=== PATIENT | female | born 1960 | race Caucasian/White ===

== ENCOUNTER 2018-02-23 12:43 | Emergency (ER) | payer OTHER ==
--- OUTSIDE RECORDS SUMMARY | 2018-02-23 12:54 | XMS REPORT ---
:1960 External Reference #:[id number] Author Organization [facility] Address [address] [address] Phone [phone] Care Team Providers Name Role Phone Briseida Mcknight MD Care Team Information Pulp Drier Unavailable Payers Type Date Identification Numbers Payment Provider Subscriber Commercial Effective: Policy Number: [id number] Aepiercemary jo Corley 2016 PayID: [id number] [address] [place] [address] Medigap Part B Effective: Policy Number: FREDI Commercial Bernardo Corley 2010 [id number] Expires: 2014 PayID: [id number] [address] [address] [place] [address] Medigap Part B Expires: 2016 Policy Number: BCEUGENIE o Rosalie Corley [id number] Group Number: [id number] [address] [address] PayID: [id number] [place] [id number] Problems Date Description Provider Status Onset: 12/09/2012 Post-surgical malabsorption Briseida Mcknight MD Active Onset: 04/14/2011 Vitamin D deficiency Briseida Mcknight MD Active Onset: 03/03/2007 Hypothyroidism Briseida Mcknight MD Active Onset: 10/09/2014 Impaired fasting glycaemia Briseida Mcknight MD Active Onset: 02/18/2016 Tobacco user Briseida Mcknight MD Active Onset: 02/19/2017 Cobalamin deficiency Briseida Mcknight MD Active Onset: 08/19/2017 History of polyp of colon Briseida Mcknight MD Active Family History Date Family Member(s) Problem(s) Comments : (age 65 Years) Father due to Cancer, Colon Mother None Social History Type Date Description Comments Marital Status Lives With Spouse Pets several cats Occupation Insurance now works in [employer] Cigarette Use current cigarette smoker 4-5 daily ETOH Use Rarely consumes alcohol Smoking Patient is a current smoker, smokes every day Exercise Type/Frequency Walks 5 times a week Allergies, Adverse Reactions, Alerts Date Description Reaction Status Severity Comments 10/01/2014 NKDA active Medications Medication Date Status Form Strength Qnty SIG Indications Ordering Provider Levothyroxine Active Tablets 112mcg 90tabs take one E03.9 Jim Mcknight 016 tablet MD Briseida by mouth every day Vitamin B-12 ER Active Tablets ER 1000mcg 1 po qd Jana Mcknight MD Vitamin D Active Tablets 2000Unit 1 by Unknown 000 mouth every day Levothyroxine Hx Tablets 100mcg 90tabs 1 by E03.9 Jim Mcknight 013 - mouth MD Briseida every 016 day Immunizations CPT Code Status Date Vaccine Lot # [id number] Given 07/01/2012 Zoster (Zostavax) 30119 Given 01/06/2011 Tdap (Adacel) Ages 7 And Above Only [id number] Refused 02/21/2018 Influenza Vac, 3 Yrs & Older, Quadrivalent, [place], [place] Use [id number] Refused 08/19/2017 Afluria Or Fluvirin Flu Vac Intramuscular Vital Signs Date Vital Result Comment 02/21/2018 Weight 169.00 lb Heart Rate 70 /min BP Systolic 130 mmHg BP Diastolic 80 mmHg Respiratory Rate 18 /min Height 61.75 inches 5'1.75" 08/19/17 BMI (Body Mass Index) 31.2 kg/m2 08/19/2017 Weight 167.00 lb Heart Rate 76 /min BP Systolic 122 mmHg BP Diastolic 70 mmHg Respiratory Rate 18 /min Height 61.75 inches 5'1.75" 08/19/17 BMI (Body Mass Index) 30.8 kg/m2 02/19/2017 Body Temperature 98.3 F Weight 161.00 lb Heart Rate 68 /min BP Systolic 130 mmHg BP Diastolic 80 mmHg Respiratory Rate 18 /min Height 61.75 inches 5'1.75" BMI (Body Mass Index) 29.7 kg/m2 08/18/2016 Weight 161.00 lb Heart Rate 70 /min BP Systolic 120 mmHg BP Diastolic 70 mmHg Respiratory Rate 18 /min Height 61.75 inches 5'1.75" BMI (Body Mass Index) 29.7 kg/m2 02/18/2016 Weight 152.00 lb Heart Rate 70 /min BP Systolic 126 mmHg BP Diastolic 76 mmHg Respiratory Rate 18 /min Height 61.75 inches 5'1.75" BMI (Body Mass Index) 28.0 kg/m2 12/17/2015 Weight 149.00 lb Heart Rate 72 /min BP Systolic 114 mmHg BP Diastolic 70 mmHg Respiratory Rate 18 /min Height 61.75 inches 5'1.75" BMI (Body Mass Index) 27.5 kg/m2 09/03/2015 Weight 146.00 lb Heart Rate 70 /min BP Systolic 118 mmHg BP Diastolic 74 mmHg Respiratory Rate 18 /min Height 61.75 inches 5'1.75" BMI (Body Mass Index) 26.9 kg/m2 03/19/2015 Weight 150.00 lb Heart Rate 68 /min BP Systolic 124 mmHg BP Diastolic 76 mmHg Respiratory Rate 17 /min Height 61.75 inches 5'1.75" BMI (Body Mass Index) 27.7 kg/m2 10/09/2014 Weight 155.00 lb Heart Rate 72 /min BP Systolic 114 mmHg BP Diastolic 70 mmHg Respiratory Rate 18 /min Height 61.75 inches 5'1.75" BMI (Body Mass Index) 28.6 kg/m2 04/20/2014 Weight 147.00 lb Heart Rate 66 /min BP Systolic 120 mmHg BP Diastolic 80 mmHg Respiratory Rate 18 /min 11/03/2013 Weight 148.00 lb Heart Rate 72 /min BP Systolic 120 mmHg BP Diastolic 80 mmHg Respiratory Rate 18 /min Height 61.75 inches 5'1.75" 05/19/2013 Weight 146.00 lb Heart Rate 72 /min BP Systolic 122 mmHg BP Diastolic 76 mmHg Respiratory Rate 16 /min Height 61.75 inches 5'1.75" (Done On 06/30/12) 12/09/2012 Weight 139.00 lb Heart Rate 60 /min BP Systolic 100 mmHg BP Diastolic 70 mmHg Respiratory Rate 16 /min Height 61.75 inches 5'1.75" (Done On 06/30/12) 06/30/2012 Weight 137.00 lb Heart Rate 64 /min BP Systolic 110 mmHg BP Diastolic 70 mmHg Respiratory Rate 16 /min Height 61.75 inches 5'1.75" 04/14/2012 Body Temperature 97.5 F Weight 146.00 lb Heart Rate 72 /min BP Systolic 112 mmHg BP Diastolic 64 mmHg Respiratory Rate 16 /min Height 61.5 inches 5'1.50" (Done On 07/16/11) O2 % BldC Oximetry 98 % 01/21/2012 Weight 142.00 lb Heart Rate 76 /min BP Systolic 118 mmHg BP Diastolic 74 mmHg Respiratory Rate 16 /min Height 61.5 inches 5'1.50" (Done On 07/16/11) 07/16/2011 Weight 178.00 lb Heart Rate 84 /min BP Systolic 116 mmHg BP Diastolic 76 mmHg Respiratory Rate 18 /min Height 61.5 inches 5'1.50" 04/14/2011 Weight 210.00 lb Heart Rate 80 /min BP Systolic 120 mmHg BP Diastolic 70 mmHg Respiratory Rate 18 /min Height 61.5 inches 5'1.50" (Done On 09/30/10) 01/27/2011 Weight 218.00 lb Heart Rate 76 /min BP Systolic 126 mmHg BP Diastolic 80 mmHg Respiratory Rate 18 /min Height 61.5 inches 5'1.50" (Done On 09/30/10) 01/06/2011 Weight 219.00 lb Heart Rate 84 /min BP Systolic 122 mmHg BP Diastolic 80 mmHg Respiratory Rate 20 /min Height 61.5 inches 5'1.50" (Done On 09/30/10) 09/30/2010 BP Systolic 130 mmHg BP Diastolic 80 mmHg 09/30/2010 Weight 220.00 lb Heart Rate 68 /min BP Systolic 136 mmHg BP Diastolic 84 mmHg Respiratory Rate 20 /min Height 61.5 inches 5'1.50" 03/28/2010 Weight 218.00 lb Heart Rate 66 /min BP Systolic 118 mmHg BP Diastolic 72 mmHg Respiratory Rate 18 /min 01/22/2010 Body Temperature 98.3 F Weight 218.00 lb Heart Rate 76 /min BP Systolic 112 mmHg l arm BP Diastolic 84 mmHg l arm Respiratory Rate 18 /min 12/20/2009 Weight 220.00 lb Heart Rate 78 /min BP Systolic 128 mmHg BP Diastolic 88 mmHg Respiratory Rate 18 /min 09/06/2009 Weight 217.00 lb Heart Rate 80 /min BP Systolic 124 mmHg BP Diastolic 82 mmHg Respiratory Rate 18 /min 03/08/2009 Weight 211.00 lb Heart Rate 70 /min BP Systolic 118 mmHg BP Diastolic 80 mmHg Respiratory Rate 16 /min 09/03/2008 Weight 211.00 lb Heart Rate 82 /min BP Systolic 122 mmHg BP Diastolic 78 mmHg Respiratory Rate 16 /min 03/22/2008 Body Temperature 97.7 F Heart Rate 88 /min BP Systolic 130 mmHg BP Diastolic 80 mmHg Respiratory Rate 18 /min Height 61.5 inches 5'1.50" 03/05/2008 Weight 214.00 lb Heart Rate 68 /min BP Systolic 126 mmHg BP Diastolic 84 mmHg Respiratory Rate 18 /min Height 61.5 inches 5'1.50" 09/02/2007 Body Temperature 97.9 F Weight 210.00 lb Heart Rate 80 /min BP Systolic 126 mmHg BP Diastolic 78 mmHg Respiratory Rate 18 /min Height 61.5 inches 5'1.50" 04/01/2007 Heart Rate 80 /min BP Systolic 122 mmHg BP Diastolic 76 mmHg Respiratory Rate 16 /min Height 61.5 inches 5'1.50" 03/25/2007 Heart Rate 88 /min BP Systolic 120 mmHg BP Diastolic 78 mmHg Respiratory Rate 16 /min Height 61.5 inches 5'1.50" 03/03/2007 Weight 208.00 lb Heart Rate 72 /min BP Systolic 126 mmHg BP Diastolic 88 mmHg Respiratory Rate 18 /min Height 61.5 inches 5'1.50" 08/24/2006 Weight 203.00 lb Heart Rate 76 /min BP Systolic 108 mmHg BP Diastolic 74 mmHg Respiratory Rate 16 /min Height 61.5 inches 5'1.50" Results Test Date Test Result H/L Range Note Laboratory test finding 02/14/2018 Vitamin D 25 Hydroxy 40 ng/mL 30-100 1, 2 TSH 2.03 uIU/mL 0.35-4.94 1 Hemoglobin A1c 02/14/2018 Hemoglobin A1c 5.8 % 4.1-5.9 1 Estimated Average Glucose Calc 120 mg/dL 71-140 1 Basic (BMP) 02/14/2018 Sodium 143 mmol/L 135-146 1, 3 Potassium 3.8 mmol/L 3.5-5.2 1 Chloride# 106 mmol/L 97-110 1, 4 Carbon Dioxide 23 mmol/L Low 24-34 1 Glucose 82 mg/dL 70-105 1 BUN 15 mg/dL 6-26 1 Creatinine 1.0 mg/dL 0.5-1.4 1 Calcium 9.8 mg/dL 8.5-10.2 1 Non Ifeoma Egfr 61 >60 1, 5 Ifeoma Egfr >60 >60 1, 6 Anion Gap 14 mmol/L 5-15 1, 7 Laboratory test finding 02/14/2018 Vitamin B12 650 pg/mL 180-914 1 CBC With Auto Diff 08/12/2017 White Blood Count 7.9 K/uL 3.1-10.7 8 Red Blood Count 4.50 M/uL 3.90-5.40 8 Hemoglobin 14.3 gm/dL 11.6-15.8 8 Hematocrit 41.9 % 36.0-46.1 8 Mean Cell Volume 93.1 fl 80.9-99.0 8 Mean Corpuscular HGB 31.8 pg 25.9-32.7 8 Mean Corpuscular HGB Conc 34.1 g/dL 30.8-34.3 8 Platelet Count 265 K/uL 155-360 8 Red Cell Distri Width SD 44.1 fl 3-47 8 Red Cell Distri Width %CV 13.2 % 11.7-14.4 8 Mean Platelet Volume 11.6 fL 8.9-12.4 8 Neut% 59.2 % 40.4-72.8 8 Lymph % 28.5 % 20.0-42.0 8 Navarro % 8.7 % 4.3-13.2 8 Eo% 3.0 % 0.0-6.6 8 Bas% 0.6 % 0.0-1.1 8 Neut# 4.66 K/uL 1.8-7.0 8 Lymph # 2.25 K/uL 1.0-4.0 8 Navarro # 0.69 K/uL 0.3-0.9 8 Eos # 0.24 K/uL 0.0-0.5 8 Baso # 0.05 K/uL 0.0-0.1 8 Laboratory test 08/12/2017 Vitamin D,25-Hydroxy 33.0 ng/mL 30.0-100.0 8 , 9 finding Glycohemoglobin A1c 08/12/2017 Glycohemoglobin (A1c) 5.5 % 4.2-6.3 8, 10 eAG 111 mg/dL 8 Laboratory test finding 08/12/2017 Vitamin B12 1076 pg/mL High 193-986 8 Basic Metabolic Panel 08/12/2017 Glucose 92 mg/dL 74-106 8 BUN 14 mg/dL 7-18 8 Creatinine 1.1 mg/dL 0.6-1.3 8 Glom Filtration Rate, Estimate 55 mL/min >60 8 If >60 mL/min >60 8, 11 BUN/Creat 12.7 ratio 8 Sodium 141 mmol/L 136-145 8 Potassium 4.3 mmol/L 3.5-5.1 8 Chloride 106 mmol/L 98-107 8 Carbon Dioxide 32 mmol/L 21-32 8 Anion Gap 3 mEq/L Low 8-16 8 Calcium 9.7 mg/dL 8.5-10.1 8 Laboratory test finding 08/12/2017 Thyroid Stim Hormone 2.99 uIU/mL 0.30- 4.20 8 Basic (BMP) 02/12/2017 Glucose 95 mg/dL 74-106 12 BUN 12 mg/dL 7-18 12 Creatinine 0.9 mg/dL 0.6-1.3 12 Glom Filtration Rate, Estimate >60 mL/min >60 12 If >60 mL/min >60 12, 13 BUN/Creat 13.3 ratio 12 Sodium 142 mmol/L 136-145 12 Potassium 5.2 mmol/L High 3.5-5.1 12 Chloride 107 mmol/L 98-107 12 Carbon Dioxide 29 mmol/L 21-32 12 Anion Gap 6 mEq/L Low 8-16 12 Calcium 9.8 mg/dL 8.5-10.1 12 Hemoglobin A1c 02/12/2017 Glycohemoglobin (A1c) 5.5 % 4.2-6.3 12, 14 eAG 111 mg/dL 12 Laboratory test finding 02/12/2017 Thyroid Stim Hormone 1.00 uIU/mL 0.30- 4.20 12 Laboratory test finding 08/11/2016 Thyroid Stim Hormone 2.23 uIU/mL 0.30- 4.20 15 BMP (Basic) 08/11/2016 Glucose 94 mg/dL 74-106 15 BUN 11 mg/dL 7-18 15 Creatinine 0.9 mg/dL 0.6-1.3 15 Glom Filtration Rate, Estimate >60 mL/min >60 15 If >60 mL/min >60 15, 16 BUN/Creat 12.2 ratio 15 Sodium 141 mmol/L 136-145 15 Potassium 4.4 mmol/L 3.5-5.1 15 Chloride 106 mmol/L 98-107 15 Carbon Dioxide 29 mmol/L 21-32 15 Anion Gap 6 mEq/L Low 8-16 15 Calcium 9.5 mg/dL 8.5-10.1 15 Hemoglobin A1c 08/11/2016 Glycohemoglobin (A1c) 5.8 % 4.2-6.3 15, 17 eAG 120 mg/dL 15 Laboratory test 08/11/2016 Vitamin D,25-Hydroxy 35.6 ng/mL 30.0-100.0 15 , 18 finding TSH 02/11/2016 Thyroid Stim Hormone 3.32 uIU/mL 0.30-4.20 @[facility] Pat Id: [id number] @[facility] Req #: [id number] Is Patient Fasting? Fasting Vitamin D,25-Hydroxy 02/11/2016 Vitamin D,25-Hydroxy 27.5 ng/mL Low 30.0- 100.0 19, 20 @[facility] Pat Id: [id number] 19 @[facility] Req #: [id number] 19 Vitamin B12 02/11/2016 Vitamin B12 909 pg/mL 193-986 @[facility] Pat Id: [id number] @[facility] Req #: [id number] Is Patient Fasting? Fasting Comprehensive Metabolic Panel 02/11/2016 Glucose 86 mg/dL 74-106 BUN 13 mg/dL 7-18 Creatinine 0.9 mg/dL 0.6-1.3 Glom Filtration Rate, Estimate >60 mL/min >60 If >60 mL/min >60 21 BUN/Creat 14.4 ratio Sodium 140 mmol/L 136-145 Potassium 4.1 mmol/L 3.5-5.1 Chloride 105 mmol/L 98-107 Carbon Dioxide 29 mmol/L 21-32 Anion Gap 6 mEq/L Low 8-16 Calcium 9.1 mg/dL 8.5-10.1 Total Protein 7.5 g/dL 6.4-8.2 Albumin 4.0 g/dL 3.4-5.0 Globulin 3.5 g/dL 1.9-4.3 Alb/Glob 1.1 ratio Bilirubin,Total 0.7 mg/dL 0.2-1.0 Sgot/Ast 16 U/L 15-37 SGPT/Alt 21 U/L 12-78 Alkaline Phosphatase 102 U/L 45-117 @[facility] Pat Id: [id number] @[facility] Req #: [id number] Is Patient Fasting? Fasting Hemoglobin A1c 02/11/2016 Glycohemoglobin (A1c) 5.5 % 4.2-6.3 19, 22 eAG 111 mg/dL 19 @[facility] Pat Id: [id number] 19 @[facility] Req #: [id number] 19 Laboratory test finding 10/15/2015 Thyroid Stim Hormone 0.98 uIU/mL 0.30- 4.20 Glycohemoglobin A1c 08/27/2015 Glycohemoglobin (A1c) 5.2 % 4.2-6.3 23 eAG 103 mg/dL Basic Metabolic Panel 08/27/2015 Glucose 84 mg/dL 74-106 BUN 9 mg/dL 7-18 Creatinine 0.9 mg/dL 0.6-1.3 Glom Filtration Rate, Estimate >60 mL/min >60 If >60 mL/min >60 24 BUN/Creat 10.0 ratio Sodium 140 mmol/L 136-145 Potassium 4.3 mmol/L 3.5-5.1 Chloride 106 mmol/L 98-107 Carbon Dioxide 27 mmol/L 21-32 Anion Gap 7 mEq/L Low 8-16 Calcium 9.6 mg/dL 8.5-10.1 Laboratory test finding 08/27/2015 Thyroid Stim Hormone 3.89 uIU/mL High 0.36-3.74 Laboratory test finding 10/03/2014 TSH 1.84 0.35-4.94 25 Vitamin B12 >1500 pg/mL High 180-914 25 Vit D,25 Hydroxy 49 ng/mL 31-100 25 CBC With Auto Diff 10/03/2014 WBC 6.4 K/uL 4.1-11.0 25 RBC 4.43 M/uL 4.00-5.40 25 Hemoglobin 14.3 gm/dL 12.0-16.0 25 Hematocrit 42.4 % 36.0-47.0 25 MCV 95.7 fL 80.0-97.0 25 MCH 32.2 pg High 27.0-32.0 25 MCHC 33.6 g/dL 32.0-36.0 25 RDW 13.1 % 11.5-14.5 25 PLT Count 242 K/ul 140-400 25 Neutrophil 57.0 % 35.0-75.0 25 Lymphocyte 30.3 % 16.0-52.0 25 Monocyte 9.5 % 2.0-10.0 25 Eosinophil 2.2 % 0.0-5.0 25 Basophil 1.0 % 0.0-4.0 25 Abs Neutrophils 3.7 K/uL 2.1-8.0 25 Abs Lymphocytes 2.0 K/uL 0.8-5.5 25 Abmon 0.6 K/uL 0.1-1.0 25 Abs Eosinophils 0.1 K/uL 0.0-0.5 25 Abs Basophils 0.1 K/uL 0.0-0.3 25 Basic (BMP) 10/03/2014 Sodium 139 mmol/L 134-142 25 Potassium 4.9 mmol/L 3.5-5.2 25 Chloride 103 mmol/L 97-109 25 Carbon Dioxide 31 mmol/L 24-34 25 Glucose 90 mg/dL 70-105 25 BUN 15 mg/dL 6- 25 Creatinine 0.9 mg/dL 0.5-1.4 25 Calcium 9.9 mg/dL 8.5-10.2 25 Anion Gap 10 mmol/L 6-14 25 Non Ifeoma Egfr >60 >60 25, 26 Ifeoma Egfr >60 >60 25, 27 Laboratory test finding 10/03/2014 Hemoglobin A1c 5.4 % 4.1-5.9 25 Laboratory test finding 04/13/2014 BUN 12.0 mg/dL 7.0-18.0 BUN/Creat Ratio 15.0 ratio 12.0-20.0 Calcium 9.8 mg/dL 8.7-10.5 Chloride 107.0 mmol/L 98.0-107.0 Co2 23.0 mmol/L 22.0-30.0 Creatinine-Serum 0.8 mg/dL 0.7-1.2 Glucose 83.0 mg/dL 75.0-110.0 Potasium 4.4 mmol/L 3.6-5.0 Sodium 139.0 mmil/L 137.0-145.0 TSH 2.86 uIU/ml 0.50-6.00 Vitamin B12 1832.0 pg/mL High 200.0-900.0 eGFR 79.7 Laboratory test finding 04/13/2014 Hepatitis C Antibody Nonreactive Nonreactive Serum Iron 156 g/dL 50-170 Signal/Cutoff ratio < 0.02 <0.80 28 Total Iron Binding Capacity 333 g/dL 250-450 Transferrin %Saturation 47 % 12-57 Laboratory test finding 10/27/2013 % A1c 5.3 % 4.1-6.5 % Baso. 1.8 % 0.0-2.0 % Eos. 3.3 % 0.0-4.0 % Lymph 32 % 20-44 % Navarro 9.8 % 2.0-10.0 % Autumn 53 % 50-70 Absolute Baso. 0.1 K/ul 0.0-0.3 Absolute Eos. 0.2 K/ul 0.0-0.5 Absolute Lymph. 2.1 K/ul 0.8-4.8 Absolute Navarro. 0.7 K/ul 0.1-1.0 Absolute Autumn. 3.56 K/ul 2.05-7.63 Alt 11.0 U/L 9.0-52.0 Ast 17.0 U/L 14.0-36.0 BUN 13.0 mg/dL 7.0-18.0 BUN/Creat Ratio 14.4 ratio 12.0-20.0 Calcium 9.9 mg/dL 8.7-10.5 Chloride 103.0 mmol/L 98.0-107.0 Co2 27.0 mmol/L 22.0-30.0 Creatinine-Serum 0.9 mg/dL 0.7-1.2 Glucose 90.0 mg/dL 75.0-110.0 HCT 40.5 % 37.0-51.0 HGB 14.1 Gm/dl 12.0-16.0 MCH 32.3 pg High 26.0-32.0 MCHC 34.9 g/dL 31.0-36.0 MCV 92.5 Fl 80.0-97.0 MPV 8.2 fL 6.0-10.0 PLT 275 K/ul 140-440 Potasium 5.3 mmol/L High 3.6-5.0 RBC 4.4 M/ul 4.2-6.3 RDW 11.5 % 11.5-14.5 Sodium 139.0 mmil/L 137.0-145.0 TSH 4.13 uIU/ml 0.50-6.00 Vitamin B12 1378.0 pg/mL High 200.0-900.0 Vitamin D 39.4 ng/mL 30.0-100.0 WBC 6.7 K/ul 4.1-10.9 eGFR 69.9 Lipid Panel 10/27/2013 Chol/HDL Ratio 4.8 ratio Cholesterol 211.0 mg/dL High 50.0-199.0 HDL 44.0 mg/dL 29.0-86.0 LDL, Calculated 147.0 mg/dL High 20.0-129.0 Triglycerides 100.0 mg/dL 30.0-249.0 vLDL 20.0 ng/dL Laboratory test finding 07/18/2013 TSH 3.48 uIU/ml 0.50-6.00 Laboratory test finding 05/11/2013 TSH 6.91 uIU/ml High 0.50-6.00 Lipid Panel 11/30/2012 Chol/HDL Ratio 4.4 ratio Cholesterol 191.0 mg/dL 50.0-199.0 HDL 43.0 mg/dL 29.0-86.0 LDL, Calculated 127.0 mg/dL 20.0-129.0 Triglycerides 105.0 mg/dL 30.0-249.0 vLDL 21.0 ng/dL Laboratory test finding 11/30/2012 % A1c 5.1 % 4.1-6.5 % Baso. 1.9 % 0.0-2.0 % Eos. 2.9 % 0.0-4.0 % Lymph 33 % 20-44 % Navarro 10.1 % High 2.0-10.0 % Autumn 53 % 50-70 Absolute Baso. 0.1 K/ul 0.0-0.3 Absolute Eos. 0.2 K/ul 0.0-0.5 Absolute Lymph. 2.0 K/ul 0.8-4.8 Absolute Navarro. 0.6 K/ul 0.1-1.0 Absolute Autumn. 3.19 K/ul 2.05-7.63 Alt 11.0 U/L 9.0-52.0 Ast 15.0 U/L 14.0-36.0 BUN 16.0 mg/dL 7.0-18.0 BUN/Creat Ratio 16.0 ratio 12.0-20.0 Calcium 10.2 mg/dL 8.7-10.5 Chloride 105.0 mmol/L 98.0-107.0 Co2 24.0 mmol/L 22.0-30.0 Creatinine-Serum 1.0 mg/dL 0.7-1.2 Glucose 90.0 mg/dL 75.0-110.0 HCT 42.7 % 37.0-51.0 HGB 14.3 Gm/dl 12.0-16.0 MCH 31.5 pg 26.0-32.0 MCHC 33.4 g/dL 31.0-36.0 MCV 94.4 Fl 80.0-97.0 MPV 8.9 fL 6.0-10.0 PLT 269 K/ul 140-440 Potasium 4.7 mmol/L 3.6-5.0 RBC 4.5 M/ul 4.2-6.3 RDW 11.6 % 11.5-14.5 Sodium 142.0 mmil/L 137.0-145.0 TSH 3.95 uIU/ml 0.50-6.00 Vitamin B12 1159.0 pg/mL High 200.0-900.0 Vitamin D 40.3 ng/mL 30.0-100.0 WBC 6.1 K/ul 4.1-10.9 eGFR 62.1 Laboratory test finding 07/22/2012 Polyp Colon And/Or Rectum See Note 29 Laboratory test finding 06/23/2012 Alt 13.0 U/L 9.0-52.0 Ast 15.0 U/L 14.0-36.0 TSH 5.76 uIU/ml 0.50-6.00 Vitamin B12 1144.0 pg/mL High 200.0-900.0 Lipid Panel 06/23/2012 Chol/HDL Ratio 4.3 ratio Cholesterol 191.0 mg/dL 50.0-199.0 HDL 44.0 mg/dL 29.0-86.0 LDL, Calculated 128.4 mg/dL 20.0-129.0 Triglycerides 93.0 mg/dL 30.0-249.0 vLDL 18.6 ng/dL Laboratory test finding 06/23/2012 Serum Iron 111 g/dL 25-156 30 Laboratory test finding 04/05/2012 Absolute Basophils 0.135 K/ul 0.0-0.3 31 Absolute Eosinophils 0.172 K/ul 0.0-0.5 31 Absolute Lymphocytes 1.90 K/ul 0.8-4.8 31 Absolute Monocytes 0.846 K/ul 0.1-1.0 31 Absolute Neutrophils 8.05 K/ul High 2.05-7.63 31 Alt 25 U/L 9-52 31 Anion Gap 15 mmol/L 10-20 31 Ast 18 U/L 14-36 31 BUN 9 mg/dL 7-18 31 BUN/CR Ratio 11.0 Ratio Low 12-20 31 Basophil 1.2 % 0-2 31 Calcium 10.0 mg/dL 8.7-10.5 31 Carbon Dioxide 28 mmol/L 22-30 31 Chloride 103 mmol/L 98-107 31 Creatinine, Serum 0.8 mg/dL 0.7-1.2 31 Eosinophil 1.6 % 0-4 31 Glucose 82 mg/dL 65-105 31 Hematocrit 41.2 % 37.0-51.0 31 Hemoglobin 14.0 GM/dl 12.0-16.0 31 Hemoglobin A1c 5.3 % 4.1-6.5 31 Lymphocytes 17.1 % Low 20-44 31 MCH 31.8 pg 26.0-32.0 31 MCHC 34.1 g/dL 31.0-36.0 31 MCV 93 FL 80-97 31 Monocytes 7.6 % 2-10.0 31 Neutrophils 72.5 % High 50-70 31 Platelet Count 268 K/ul 140-440 31 Potassium 4.7 mmol/L 3.6-5.0 31 RBC 4.42 M/ul 4.2-6.3 31 RDW 11.4 % Low 11.5-14.5 31 Sodium 141 mmol/L 137-145 31 TSH 5.473 uIU/ml 0.50-6.00 31 Vitamin D,25-Hydroxy 43.1 ng/mL 30.0-100.0 31, 32 WBC 11.1 K/ul High 4.1-10.9 31 Lipid Panel 04/05/2012 Chol/HDL Ratio 2.8 31, 33 Cholesterol 145 mg/dL 50-199 31 HDL Cholesterol 51 mg/dL 29-86 31 LDL 73 mg/dL 20-129 31 Triglycerides 107 mg/dL 30-249 31 VLDL Cholesterol 21 mg/dL 31 Laboratory test finding 01/14/2012 Anion Gap 12 mmol/L 10-20 34 BUN 11 mg/dL 7-18 34 BUN/CR Ratio 14.1 Ratio 12-20 34 Calcium 9.6 mg/dL 8.7-10.5 34 Carbon Dioxide 25 mmol/L 22-30 34 Chloride 105 mmol/L 98-107 34 Creatinine, Serum 0.8 mg/dL 0.7-1.2 34 Glucose 80 mg/dL 65-105 34 Hemoglobin A1c 5.4 % 4.1-6.5 34 Potassium 4.5 mmol/L 3.6-5.0 34 Sodium 137 mmol/L 137-145 34 TSH 3.662 uIU/ml 0.50-6.00 34 Laboratory test finding 01/14/2012 Serum Iron 103 g/dL 25-156 35 Vitamin B12 646 pg/mL 200-900 36 Laboratory test finding 09/08/2011 Serum Iron 70 g/dL 25-156 37 Vitamin B12 587 pg/mL 311-1180 38 Laboratory test finding 07/09/2011 Anion Gap 14 mmol/L 10-20 39 BUN 10 mg/dL 7-18 39 BUN/CR Ratio 12.4 Ratio 12-20 39 Calcium 9.5 mg/dL 8.7-10.5 39 Carbon Dioxide 26 mmol/L 22-30 39 Chloride 104 mmol/L 98-107 39 Creatinine, Serum 0.8 mg/dL 0.7-1.2 39 Glucose 90 mg/dL 65-105 39 Hemoglobin A1c 5.3 % 4.1-6.5 39 Potassium 4.5 mmol/L 3.6-5.0 39 Sodium 140 mmol/L 137-145 39 TSH 0.561 uIU/ml 0.50-6.00 39 Vitamin D,25-Hydroxy 33.2 ng/mL 30.0-100.0 39, 40 Laboratory test finding 04/14/2011 Vitamin D,25-Hydroxy 30.0 ng/mL Low 32.0-100.0 41 Laboratory test finding 04/08/2011 Alt 28 U/L 9-52 39 Anion Gap 14 mmol/L 10-20 39 Ast 24 U/L 14-36 39 BUN 14 mg/dL 7-18 39 BUN/CR Ratio 15.0 Ratio 12-20 39 Calcium 9.6 mg/dL 8.7-10.5 39 Carbon Dioxide 25 mmol/L 22-30 39 Chloride 106 mmol/L 98-107 39 Creatinine, Serum 0.9 mg/dL 0.7-1.2 39 Glucose 97 mg/dL 65-105 39 Hemoglobin A1c 5.8 % 4.1-6.5 39 Potassium 4.7 mmol/L 3.6-5.0 39 Sodium 141 mmol/L 137-145 39 Lipid Panel 04/08/2011 Chol/HDL Ratio 4.0 39, 42 Cholesterol 158 mg/dL 50-199 39 HDL Cholesterol 39 mg/dL 29-86 39 LDL 85 mg/dL 20-129 39 Triglycerides 170 mg/dL 30-249 39 VLDL Cholesterol 34 mg/dL 39 Laboratory test finding 02/20/2011 TSH 3.231 uIU/ml 0.50-6.00 43 Laboratory test finding 01/06/2011 Ferritin 68.0 ng/mL 3-105 44 Helicobacter Pylori, Igg <0.9 U/mL 0.0-0.8 45 Serum Iron 71 g/dL 25-156 46 Vitamin B1 (Thiamine),Plasma 7.7 ug/L 4.0-20.0 47 Vitamin D,25-Hydroxy 20.3 ng/mL Low 32.0-100.0 48 Vitamin B12 And Folate 01/06/2011 Folic Acid 15.0 ng/mL 6.0-15.4 Vitamin B12 510 pg/mL 208-964 Laboratory test finding 01/06/2011 A/G Ratio 1.4 1.0-2.2 Absolute Basophils 0.149 K/ul 0.0-0.3 Absolute Eosinophils 0.528 K/ul High 0.0-0.5 Absolute Lymphocytes 2.39 K/ul 0.8-4.8 Absolute Monocytes 0.656 K/ul 0.1-1.0 Absolute Neutrophils 4.56 K/ul 2.05-7.63 Albumin 4.0 g/dL 3.5-5.0 Alkaline Phosphatase 99 U/L 30-126 Alt 30 U/L 9-52 Ast 26 U/L 14-36 BUN 11 mg/dL 7-18 BUN/CR Ratio 13.3 Ratio 12-20 Basophil 1.8 % 0-2 Calcium 9.4 mg/dL 8.7-10.5 Carbon Dioxide 24 mmol/L 22-30 Chloride 107 mmol/L 98-107 Creatinine, Serum 0.9 mg/dL 0.7-1.2 Eosinophil 6.4 % High 0-4 Globulin 2.9 g/dL 2.7-4.3 Glucose 95 mg/dL 65-105 Hematocrit 41.2 % 37.0-51.0 Hemoglobin 13.8 GM/dl 12.0-16.0 Lymphocytes 28.8 % 20-44 MCH 31.0 pg 26.0-32.0 MCHC 33.6 g/dL 31.0-36.0 MCV 92 FL 80-97 Monocytes 7.9 % 2-10.0 Neutrophils 55.1 % 50-70 Platelet Count 254 K/ul 140-440 Potassium 4.4 mmol/L 3.6-5.0 RBC 4.47 M/ul 4.2-6.3 RDW 11.6 % 11.5-14.5 Sodium 144 mmol/L 137-145 TSH 8.747 uIU/ml High 0.50-6.00 Total Bilirubin 0.5 mg/dL 0.2-1.3 Total Protein 6.9 g/dL 6.3-8.2 WBC 8.3 K/ul 4.1-10.9 Laboratory test finding 12/31/2010 Alt 27 U/L 9-52 49 Anion Gap 20 mmol/L 10-20 49 Ast 22 U/L 14-36 49 BUN 15 mg/dL 7-18 49 BUN/CR Ratio 15.0 Ratio 12-20 49 Calcium 9.5 mg/dL 8.7-10.5 49 Carbon Dioxide 25 mmol/L 22-30 49 Chloride 105 mmol/L 98-107 49 Creatinine, Serum 1.0 mg/dL 0.7-1.2 49 Glucose 97 mg/dL 65-105 49 Hemoglobin A1c 5.7 % 4.1-6.5 49 Potassium 5.1 mmol/L High 3.6-5.0 49 Sodium 145 mmol/L 137-145 49 Lipid Panel 12/31/2010 Chol/HDL Ratio 4.9 49, 50 Cholesterol 187 mg/dL 50-199 49 HDL Cholesterol 38 mg/dL 29-86 49 LDL 104 mg/dL 20-129 49 Triglycerides 223 mg/dL 30-249 49 VLDL Cholesterol 45 mg/dL 49 Laboratory test finding 09/26/2010 Alt 33 U/L 9-52 51 Anion Gap 16 mmol/L 10-20 51 Ast 28 U/L 14-36 51 BUN 15 mg/dL 7-18 51 BUN/CR Ratio 14.9 Ratio 12-20 51 Calcium 9.7 mg/dL 8.7-10.5 51 Carbon Dioxide 27 mmol/L 22-30 51 Chloride 105 mmol/L 98-107 51 Creatinine, Serum 1.0 mg/dL 0.7-1.2 51 Glucose 105 mg/dL 65-105 51 Potassium 4.9 mmol/L 3.6-5.0 51 Sodium 143 mmol/L 137-145 51 TSH 4.367 uIU/ml 0.50-6.00 51 Lipid Panel 09/26/2010 Chol/HDL Ratio 4.3 51, 52 Cholesterol 182 mg/dL 50-199 51 HDL Cholesterol 42 mg/dL 29-86 51 LDL 103 mg/dL 20-129 51 Triglycerides 183 mg/dL 30-249 51 VLDL Cholesterol 37 mg/dL 51 Laboratory test finding 05/13/2010 TSH 3.332 uIU/ml 0.50-6.00 53 Laboratory test finding 03/24/2010 Alt 35 U/L 9-52 54 Anion Gap 14 mmol/L 10- 54 Ast 25 U/L 14-36 54 BUN 12 mg/dL 7-18 54 BUN/CR Ratio 13.3 Ratio 12-20 54 Calcium 9.6 mg/dL 8.7-10.5 54 Carbon Dioxide 23 mmol/L 22-30 54 Chloride 104 mmol/L 98-107 54 Creatinine, Serum 0.9 mg/dL 0.7-1.2 54 Glucose 100 mg/dL 65-105 54 Potassium 4.1 mmol/L 3.6-5.0 54 Sodium 137 mmol/L 137-145 54 TSH 9.052 uIU/ml High 0.50-6.00 54 Lipid Panel 03/24/2010 Chol/HDL Ratio 4.5 54, 55 Cholesterol 172 mg/dL 50-199 54 HDL Cholesterol 38 mg/dL 29-86 54 LDL 100 mg/dL 20-129 54 Triglycerides 169 mg/dL 30-249 54 VLDL Cholesterol 34 mg/dL 54 Laboratory test finding 12/12/2009 Alt 37 U/L - 54 Ast 32 U/L 14-36 54 Lipid Panel 12/12/2009 Chol/HDL Ratio 5.5 54, 56 Cholesterol 195 mg/dL 50-199 54 HDL Cholesterol 35 mg/dL 29-86 54 LDL 129 mg/dL 20-129 54 Triglycerides 153 mg/dL 30-249 54 VLDL Cholesterol 31 mg/dL 54 Laboratory test finding 08/30/2009 Alt 28 U/L 9-52 57 Anion Gap 12 mmol/L 10- 57 Ast 28 U/L 14-36 57 BUN 11 mg/dL 7-18 57 BUN/CR Ratio 12.1 Ratio 12-20 57 Calcium 9.4 mg/dL 8.7-10.5 57 Carbon Dioxide 27 mmol/L 22-30 57 Chloride 103 mmol/L 98-107 57 Creatinine, Serum 1.0 mg/dL 0.7-1.2 57 Glucose 97 mg/dL 65-105 57 Potassium 4.3 mmol/L 3.6-5.0 57 Sodium 138 mmol/L 137-145 57 TSH 4.184 uIU/ml 0.50-6.00 57 Lipid Panel 08/30/2009 Chol/HDL Ratio 7.1 57, 58 Cholesterol 249 mg/dL High 50-199 57 HDL Cholesterol 35 mg/dL 29-86 57 LDL 173 mg/dL High 20-129 57 Triglycerides 203 mg/dL 30-249 57 VLDL Cholesterol 41 mg/dL 57 Laboratory test finding 03/01/2009 Absolute Basophils 0.085 K/ul 0.0-0.3 57 Absolute Eosinophils 0.256 K/ul 0.0-0.5 57 Absolute Lymphocytes 2.74 K/ul 0.8-4.8 57 Absolute Monocytes 0.556 K/ul 0.1-1.0 57 Absolute Neutrophils 5.45 K/ul 2.05-7.63 57 Alt 29 U/L 9-52 57 Anion Gap 12 mmol/L 10-20 57 Ast 25 U/L 14-36 57 BUN 14 mg/dL 7-18 57 BUN/CR Ratio 14.8 Ratio 12-20 57 Basophil 0.9 % 0-2 57 Calcium 9.7 mg/dL 8.7-10.5 57 Carbon Dioxide 28 mmol/L 22-30 57 Chloride 105 mmol/L 98-107 57 Creatinine, Serum 0.9 mg/dL 0.7-1.2 57 Eosinophil 2.8 % 0-4 57 Glucose 95 mg/dL 65-105 57 Hematocrit 39.7 % 37.0-51.0 57 Hemoglobin 13.2 GM/dl 12.0-16.0 57 Lymphocytes 30.1 % 20-44 57 MCH 29.2 pg 26.0-32.0 57 MCHC 33.3 g/dL 31.0-36.0 57 MCV 88 FL 80-97 57 Monocytes 6.1 % 2-10.0 57 Neutrophils 60.0 % 50-70 57 Platelet Count 268 K/ul 140-440 57 Potassium 4.6 mmol/L 3.6-5.0 57 RBC 4.53 M/ul 4.2-6.3 57 RDW 12.6 % 11.5-14.5 57 Sodium 141 mmol/L 137-145 57 TSH 4.824 uIU/ml 0.50-6.00 57 WBC 9.1 K/ul 4.1-10.9 57 Lipid Panel 03/01/2009 Chol/HDL Ratio 6.3 57, 59 Cholesterol 208 mg/dL High 50-199 57 HDL Cholesterol 33 mg/dL 29-86 57 LDL 136 mg/dL High 20-129 57 Triglycerides 195 mg/dL 30-249 57 VLDL Cholesterol 39 mg/dL 57 Lipid Panel 08/29/2008 Chol/HDL Ratio 6.0 57, 60 Cholesterol 243 mg/dL High 50-199 57 HDL Cholesterol 40 mg/dL 29-86 57 LDL 176 mg/dL High 20-129 57 Triglycerides 134 mg/dL 30-249 57 VLDL Cholesterol 27 mg/dL 57 Laboratory test finding 08/29/2008 Absolute Basophils 0.099 K/ul 0.0-0.3 57 Absolute Eosinophils 0.244 K/ul 0.0-0.5 57 Absolute Lymphocytes 2.62 K/ul 0.8-4.8 57 Absolute Monocytes 0.641 K/ul 0.1-1.0 57 Absolute Neutrophils 5.04 K/ul 2.05-7.63 57 Anion Gap 13 mmol/L 10-20 57 BUN 10 mg/dL 7-18 57 BUN/CR Ratio 11.5 Ratio Low 12-20 57 Basophil 1.2 % 0-2 57 Calcium 10.0 mg/dL 8.7-10.5 57 Carbon Dioxide 26 mmol/L 22-30 57 Chloride 105 mmol/L 98-107 57 Creatinine, Serum 0.9 mg/dL 0.7-1.2 57 Eosinophil 2.8 % 0-4 57 Glucose 97 mg/dL 65-105 57 Hematocrit 42.5 % 37.0-51.0 57 Hemoglobin 14.0 GM/dl 12.0-16.0 57 Lymphocytes 30.3 % 20-44 57 MCH 30.5 pg 26.0-32.0 57 MCHC 32.9 g/dL 31.0-36.0 57 MCV 93 FL 80-97 57 Monocytes 7.4 % 2-10.0 57 Neutrophils 58.3 % 50-70 57 Platelet Count 325 K/ul 140-440 57 Potassium 4.9 mmol/L 3.6-5.0 57 RBC 4.59 M/ul 4.2-6.3 57 RDW 11.8 % 11.5-14.5 57 Sodium 139 mmol/L 137-145 57 TSH 3.889 uIU/ml 0.50-6.00 57 WBC 8.7 K/ul 4.1-10.9 57 Laboratory test finding 03/22/2008 A/G Ratio 1.4 1.0-2.2 Albumin 4.3 g/dL 3.5-5.0 Alkaline Phosphatase 110 U/L 30-126 Alt 32 U/L 9-52 Ast 26 U/L 14-36 BUN 12 mg/dL 7-18 BUN/CR Ratio 13.4 Ratio 12-20 Band% 1 % 0-8 CK-MB (Mass) 1.8 ng/mL 0.0-9.0 Calcium 10.2 mg/dL 8.7-10.5 Carbon Dioxide 26 mmol/L 22-30 Chloride 104 mmol/L 98-107 Creatinine, Serum 0.9 mg/dL 0.7-1.2 Eosinophil% 2 % 0-5 Globulin 3.2 g/dL 2.7-4.3 Glucose 78 mg/dL 65-105 Hematocrit 42.1 % 36.0-46.1 Hemoglobin 14.2 gm/dL 11.6-15.8 Lymph% 23 % 17-56 Mean Cell Volume 90.0 fl 80.9-99.0 Mean Corpuscular HGB 30.3 pg 25.9-32.7 Mean Corpuscular HGB Conc 33.7 g/dL 30.8-34.3 Mean Platelet Volume 11.7 fL 8.9-12.4 Monocyte% 9 % 0-10 Neutrophils% 65 % 33-73 Platelet Count 284 K/uL 155-360 Platelet Estimate Normal Potassium 4.6 mmol/L 3.6-5.0 RBC Morphology Normal Red Blood Count 4.68 M/uL 3.90-5.40 Red Cell Distri Width %CV 13.5 % 11.7-14.4 Sodium 141 mmol/L 137-145 TSH 5.880 uIU/ml 0.50-6.00 Total Bilirubin 0.2 mg/dL 0.2-1.3 Total Cells Counted 100 #CELLS Total Protein 7.5 g/dL 6.3-8.2 Troponin-I 0.0 ng/mL 0.0-0.6 61 White Blood Count 14.2 K/uL High 3.1-10.7 Laboratory test 02/29/2008 TSH 4.378 uIU/ml 0.50-6.00 62 finding Laboratory test 09/02/2007 Throat Culture Normal Throat FL 63 finding Complete <See Note> Laboratory test 07/06/2007 Hematocrit 37.4 % 34.0-46.0 finding Hemoglobin 12.6 gm/dL 11.5-15.5 Mean Cell Volume 85.0 fL 80.0-96.0 Mean Corpuscular HGB 28.6 pg 27.0-33.0 Mean Corpuscular HGB Conc 33.6 g/dL 31.7-36.0 Mean Platelet Volume 7.4 fl 6.6-10.6 Platelet Count 369 K/uL 150-400 Red Blood Count 4.40 M/uL 3.90-5.20 Red Cell Distri Width %CV 14.5 % 11.6-15.8 Thyroid Stim Hormone 3.95 uIU/mL 0.49-4.67 White Blood Count 8.9 K/uL 3.4-10.5 Laboratory test 04/14/2007 TSH 3.797 uIU/ml 0.50-6.00 64 finding Laboratory test 04/14/2007 Helicobacter Pylori, <0.9 U/mL 0.0-0.8 65 finding Igg Laboratory test 10/05/2006 TSH 5.120 uIU/ml 0.50-6.00 66 finding Lipid Panel 10/05/2006 Chol/HDL Ratio 5.2 66, 67 Cholesterol 217 mg/dL High 50-199 66 HDL Cholesterol 41 mg/dL 29-86 66 LDL 133 mg/dL High 20-129 66 Triglycerides 217 mg/dL 30-249 66 VLDL Cholesterol 43 mg/dL 66 1 6 mos 2 Clinical Guidelines for recommended serum 25(OH)Vitamin D Deficient at less than 20 ng/mL Insufficient at 20 to <30 ng/mL Sufficient at 30-100 ng/mL Toxicity at greater than 100 ng/mL 3 Updated reference range on new analyzer 4 Updated reference range on new analyzer 5 Concerning GFR Guidelines: Normal function or mild renal disease, if clinically at risk: >/=60 mL/min Moderately decreased: 30-59 Severely decreased: 15-29 Renal failure: <15 Glomerular Filtration Rate (GFR) is estimated based on the MDRD equation, which assumes a steady state for creatinine as recommended by the National Kidney Disease Education Program in conjunction with the National Institutes of Health and the National Kidney Foundation. Clinical conditions in which it may be necessary to measure GFR by using clearance methods include extremes of age and body size, severe malnutrition or obesity, diseases of skeletal muscle, paraplegia or quadriplegia, vegetarian diet, rapidly changing kidney function, and calculation of the dose of potentially toxic drugs that are excreted by the kidneys. 6 Concerning GFR Guidelines for Americans: Normal function or mild renal disease, if clinically at risk: >/=60 mL/min Moderately decreased: 30-59 Severely decreased: 15-29 Renal failure: <15 7 Updated Reference Range 2-2018 8 E55.9,E03.9,R73.01,D51.9 9 Vitamin D deficiency has been defined by the [place] [employer] and an Endocrine Society practice guideline as a level of serum 25-OH vitamin D less than 20 ng/mL (1,2). The Endocrine Society went on to further define vitamin D insufficiency as a level between 21 and 29 ng/mL (2). 1. IOM ([place] [employer]). 2010. Dietary reference intakes for calcium and D. [place]: The National Academies Press. 2. Brandon MF, Maritza NC, Aiyana CAPELLAN, et al. Evaluation, treatment, and prevention of vitamin D deficiency: an Endocrine Society clinical practice guideline. JCEM. 2010; 96(7):1911-30. Performed at: RN - [facility] [address] [id number] [employer]: Marcia Donnelly MD, Phone: [phone] 10 Elevated levels of HbA1c suggest the need for more aggressive treatment of glycemia. The [place] [employer] recommends that a primary goal of therapy should be a HbA1c of <7% and that physicians should re-evaluate the treatment regimen in patients with HbA1c values consistently >8%. 11 Note: Persistent reduction for 3 months or more in an eGFR <60 mL/min/1.73 m2 defines CKD. Patients with eGFR values >/=60 mL/min/1.73 m2 may also have CKD if evidence of persistent proteinuria is present. The original MDRD equation for estimated GFR is not valid for patients less than 18 years of age. Additional information may be found at www.kdoqi.org. 12 R73.01 E03.9 13 Note: Persistent reduction for 3 months or more in an eGFR <60 mL/min/1.73 m2 defines CKD. Patients with eGFR values >/=60 mL/min/1.73 m2 may also have CKD if evidence of persistent proteinuria is present. The original MDRD equation for estimated GFR is not valid for patients less than 18 years of age. Additional information may be found at www.kdoqi.org. 14 Elevated levels of HbA1c suggest the need for more aggressive treatment of glycemia. The [place] Diabetes Association recommends that a primary goal of therapy should be a HbA1c of <7% and that physicians should re-evaluate the treatment regimen in patients with HbA1c values consistently >8%. 15 E03.9 R73.01 E55.9 16 Note: Persistent reduction for 3 months or more in an eGFR <60 mL/min/1.73 m2 defines CKD. Patients with eGFR values >/=60 mL/min/1.73 m2 may also have CKD if evidence of persistent proteinuria is present. The original MDRD equation for estimated GFR is not valid for patients less than 18 years of age. Additional information may be found at www.kdoqi.org. 17 Elevated levels of HbA1c suggest the need for more aggressive treatment of glycemia. The [place] [employer] Association recommends that a primary goal of therapy should be a HbA1c of <7% and that physicians should re-evaluate the treatment regimen in patients with HbA1c values consistently >8%. 18 Vitamin D deficiency has been defined by the [place] [employer] and an Endocrine Society practice guideline as a level of serum 25-OH vitamin D less than 20 ng/mL (1,2). The Endocrine Society went on to further define vitamin D insufficiency as a level between 21 and 29 ng/mL (2). 1. IOM ([place] [employer]). 2010. Dietary reference intakes for calcium and D. [place]: The National Academies Press. 2. Brandon MF, Maritza NC, Aiyana CAPELLAN, et al. Evaluation, treatment, and prevention of vitamin D deficiency: an Endocrine Society clinical practice guideline. JCEM. 2010; 96(7):1911-30. Performed at: RN - [facility] [address] [id number] [employer]: Marcia Donnelly MD, Phone: [phone] 19 E55.9,K91.2,E03.9,R73.01 20 Vitamin D deficiency has been defined by the [place] [employer] and an Endocrine Society practice guideline as a level of serum 25-OH vitamin D less than 20 ng/mL (1,2). The Endocrine Society went on to further define vitamin D insufficiency as a level between 21 and 29 ng/mL (2). 1. IOM ([place] [employer]). 2010. Dietary reference intakes for calcium and D. [place]: The National Academies Press. 2. Brandon MF, Maritza MCDUFFIE, Aiyana CAPELLAN, et al. Evaluation, treatment, and prevention of vitamin D deficiency: an Endocrine Society clinical practice guideline. JCEM. 2010; 96(7):1911-30. Performed at: RN - [facility] [address] [id number] [employer]: Marcia Donnelly MD, Phone: [phone] 21 Note: Persistent reduction for 3 months or more in an eGFR <60 mL/min/1.73 m2 defines CKD. Patients with eGFR values >/=60 mL/min/1.73 m2 may also have CKD if evidence of persistent proteinuria is present. The original MDRD equation for estimated GFR is not valid for patients less than 18 years of age. Additional information may be found at www.kdoqi.org. 22 Elevated levels of HbA1c suggest the need for more aggressive treatment of glycemia. The [place] Diabetes Association recommends that a primary goal of therapy should be a HbA1c of <7% and that physicians should re-evaluate the treatment regimen in patients with HbA1c values consistently >8%. 23 Elevated levels of HbA1c suggest the need for more aggressive treatment of glycemia. The [place] Diabetes Association recommends that a primary goal of therapy should be a HbA1c of <7% and that physicians should re-evaluate the treatment regimen in patients with HbA1c values consistently >8%. 24 Note: Persistent reduction for 3 months or more in an eGFR <60 mL/min/1.73 m2 defines CKD. Patients with eGFR values >/=60 mL/min/1.73 m2 may also have CKD if evidence of persistent proteinuria is present. The original MDRD equation for estimated GFR is not valid for patients less than 18 years of age. Additional information may be found at www.kdoqi.org. 25 6 mons 26 Concerning GFR Guidelines: Normal function or mild renal disease, if clinically at risk: >/=60 mL/min Moderately decreased: 30-59 Severely decreased: 15-29 Renal failure: <15 Glomerular Filtration Rate (GFR) is estimated based on the MDRD equation, which assumes a steady state for creatinine as recommended by the National Kidney Disease Education Program in conjunction with the National Institutes of Health and the National Kidney Foundation. Clinical conditions in which it may be necessary to measure GFR by using clearance methods include extremes of age and body size, severe malnutrition or obesity, diseases of skeletal muscle, paraplegia or quadriplegia, vegetarian diet, rapidly changing kidney function, and calculation of the dose of potentially toxic drugs that are excreted by the kidneys. 27 Concerning GFR Guidelines for Americans: Normal function or mild renal disease, if clinically at risk: >/=60 mL/min Moderately decreased: 30-59 Severely decreased: 15-29 Renal failure: <15 28 Antibodies to HCV not detected; does not exclude early acute HCV infection. 29 OPERATION/PROCEDURE Colonoscopy DIAGNOSIS: "TRANSVERSE AND SIGMOID COLON POLYPECTOMIES": HYPERPLASTIC POLYP(S) AND TUBULAR ADENOMATOUS POLYP(S) WYS/ clf GROSS "TRANSVERSE AND SIGMOID COLON POLYPS". The specimen is received in an appropriately labeled container. This contains seven rounded mohan colored pieces of soft tissue measuring up to 0.2 cm.; filtered and submitted in toto within a single cassette. WS/clf MICROSCOPIC Sections show polypoid fragmented colonic mucosa with hyperplastic, serrated glands and hyperchromatic, oval nuclei within cells lining tubular glands. PRE OPERATIVE DIAGNOSIS Family history of colon cancer. REVIEW CODE CODE: I ----- CAILIN Montoya MD 07/26/12 1200 ----- 30 REPORT FAXED PER REQUEST- 06/25/12,(LAB.CBL) FASTING FAX [facility] QUERY: Is the Patient Fasting? Y 31 FASTING 3 mos 32 Vitamin D deficiency has been defined by the [place] [employer] and an Endocrine Society practice guideline as a level of serum 25-OH vitamin D less than 20 ng/mL (1,2). The Endocrine Society went on to further define vitamin D insufficiency as a level between 21 and 29 ng/mL (2). 1. IOM ([place] [employer]). 2010. Dietary reference intakes for calcium and D. [place]: The National Academies Press. 2. Brandon MF, Maritza NC, Aiyana CAPELLAN, et al. Evaluation, treatment, and prevention of vitamin D deficiency: an Endocrine Society clinical practice guideline. JCEM. 2011 Nov; 96(7):1911-30. Performed at: RN - [facility] [address] [id number] [employer]: Marcia Donnelly MD, Phone: [phone] Normal Range: Male: <4.98 Female: <4.45 34 FASTING 6 mos 35 FAX LANDY PARMAR @ [facility] [phone] FAXED PER REQUEST - @ [id number] 01/14/12,(LAB.LAS) QUERY: Is the Patient Fasting? Y 36 FAX LANDY PARMAR @ [facility] [phone] FAXED PER REQUEST - @ 5008 01/14/12,(LAB.LAS) QUERY: Is the Patient Fasting? Y 37 FAX TO [facility] [phone] QUERY: Is the Patient Fasting? N 38 FAX TO [facility] [phone] QUERY: Is the Patient Fasting? N 39 FASTING 3 mos 40 Vitamin D deficiency has been defined by the [place] and an Endocrine Society practice guideline as a level of serum 25-OH vitamin D less than 20 ng/mL (1,2). The Endocrine Society went on to further define vitamin D insufficiency as a level between 21 and 29 ng/mL (2). 1. IOM ([place] [employer]). 2011. Dietary reference intakes for calcium and D. [place]: The National Academies Press. 2. Brandon MF, Maritza MCDUFFIE, Aiyana CAPELLAN, et al. Evaluation, treatment, and prevention of vitamin D deficiency: an Endocrine Society clinical practice guideline. JCEM. 2010; 96(7):1911-30. Performed at: [address] [id number] [employer]: Tera Mcnair MD, Phone: [phone] Effective April 20, 2011 Vitamin D, 25-Hydroxy reference intervals will be changing to 30-100. Recent studies consider the lower limit of 32.0 ng/mL to be a threshold for optimal health. Wilmer FELTON. J Nutr. 2004;135(2):317-22. Performed at: [address] [id number] [employer]: Tera Mcnair MD, Phone: [phone] 42 Normal Range: Male: <4.98 Female: <4.45 43 6 weeks 44 QUERY: @[facility] Pat ID: QUERY: @EMR Req #: 45 Negative <0.9 Indeterminate 0.9 - 1.0 Positive >1.0 Performed at: [address] [id number] [employer]: Tera Mcnair MD, Phone: [phone] QUERY: @[facility] Pat ID: QUERY: @EMR Req #: QUERY: Is the Patient Fasting? Y 47 Performed at: [address] [id number] [employer]: Cailin Urbano MD, Phone: [phone] 48 Recent studies consider the lower limit of 32.0 ng/mL to be a threshold for optimal health. Guillen BW. J Nutr. 2004;135(2):317-22. Performed at: [address] [id number] [employer]: Tera Mcnair MD, Phone: [phone] 49 FASTING 3 mos 50 Normal Range: Male: <4.98 Female: <4.45 51 FASTING 6 mos 52 Normal Range: Male: <4.98 Female: <4.45 53 FASTING 6 weeks 54 FASTING 3 mos 55 Normal Range: Male: <4.98 Female: <4.45 56 Normal Range: Male: <4.98 Female: <4.45 57 FASTING 6 mos 58 Normal Range: Male: <4.98 Female: <4.45 59 Normal Range: Male: <4.98 Female: <4.45 60 Normal Range: Male: <4.98 Female: <4.45 61 0 - 0.6 NG/ML: NO EVIDENCE OF MYOCARDIAL INJURY 0.7 - 1.5 NG/ML: MILD ELEVATION, SUGGESTING POSSIBLE MYOCARDIAL INJURY > 1.5 NG/ML: CONSISTENT WITH MYOCARDIAL INJURY 62 FASTING 6 mo 63 NORMAL THROAT DOMINICK 64 6 weeks 65 Negative <0.9 Indeterminate 0.9 - 1.0 Positive >1.0 66 FASTING 6 weeks 67 Normal Range: Male: <4.98 Female: <4.45 Procedures Date CPT Code Description Status Comment 02/21/2018 [id number] Brief Emotional/Behav Completed Assessment W/ Scoring Doc Per Standard Inst 09/30/2017 Colonoscopy Completed repeat in 3-5 years, tubular adenoma Document: 09/30/17 - Operative Report Document: 09/30/17 - Surgical Report 08/19/2017 [id number] Brief Emotional/Behav Completed Assessment W/ Scoring Doc Per Standard Inst Encounters Type Date Location Provider CPT E/M Dx Office Visit 08/19/2017 9:00a [facility] [place] [address] K91.2 E55.9 E03.9 R73.01 E53.8 F17.210 Z86.010 Z13.89 Office Visit 02/19/2017 8:00a [facility] [place] [address] K91.2 E55.9 E03.9 R73.01 Z72.0 D51.9 Office Visit 08/18/2016 8:00a [facility] [place] [address] K91.2 E55.9 E03.9 R73.01 F17.210 Office Visit 02/18/2016 8:00a [facility] [place] [address] K91.2 E55.9 E03.9 R73.01 F17.210 N95.1 Office Visit 12/17/2015 8:15a [facility] [place] [address] M77.12 Office Visit 09/03/2015 8:00a [facility] [place] [address] K91.2 E55.9 Z72.0 E03.9 R73.01 Office Visit 03/19/2015 8:45a [facility] [place] [address] K91.2 E55.9 Z72.0 E03.9 R73.01 Office Visit 10/09/2014 8:00a [facility] [place] [address] 579.3 268.9 305.1 244.9 380.4 790.21 Plan of Care Future Appointment(s):08/15/2018 7:55 am - Schedule, Laboratory at [facility]2018 8:00 am - Briseida Mcknight MD at [facility]02/21/2018 - Briseida Mcknight MDZ71.9 Counseling, unspecifiedComments:recommend a shingles vaccine at the pharmacy. Also, please have your flu vaccine done at your pharmacy as soon as possible. she does not plan to have a flu vaccine.K91.2 Postsurgical malabsorption, not elsewhere classifiedNew Labs:CBC with Auto Diff-fcmgComments:vitamin levels are normal - continue your supplements .E55.9 Vitamin D deficiency, unspecifiedNew Labs:Vitamin D 25 HydroxyComments:Vitamin D Deficiency - therapeutic - continue current dose.E03.9 Hypothyroidism, unspecifiedNew Labs: TSHComments:therapeutic - continue current doseR73.01 Impaired fasting glucoseNew Labs:Hemoglobin V7nOdalpQcbvjrugnrcrv Met Panel-FCMGComments:in the prediabetic range and worsening. please minimize intake of food containing sugar and/or white flour. continue to work on healthy lifestyle - medication is not needed.F17.210 Nicotine dependence, cigarettes, uncomplicatedComments: counseled about strategies to quit mkotrewD91.9 Vitamin B12 deficiency anemia, unspecifiedComments:in the therapeutic range - continue current doseZ86.010 Personal history of colonic polypsComments:colonoscopy done in 2018 - repeat in 3-5 years.Z13.89 Encounter for screening for other disorderComments:screening for depression is mildly positive PHQ-9=5B07.9 Viral wart, unspecifiedComments: this is a plantar wart. options for treatment include freezing (this requires several sessions andit is painful), surgical excision (this is done once but causes residual pain as the wound heals) ortreatment with bsah-jst-wifooft plantar wart removal pads (be patient - this takes time - even months)Z68.31 Body mass index (BMI) 31.0-31.9, adultComments:the BMI is the ratio between height and weight. goal for a person under age 65 is between 18.5 and25. You are overweight. Work on healthy lifestyle, with regular exercise (20 min daily will help) and eat a healthy diet. formal diet plans work best.AllFollow up:6 mo follow-up with fasting labs prior
[2018-02-23 13:15] VITALS: BP 125/72
--- NOTE | 2018-02-23 13:39 | UC ---
Eye Complaint HPI - HPI Summary HPI Summary: 58-year-old woman comes in to clinic today with a complaint of left eye discharge and crusting since last night. Patient has no runny nose or sinusitis or upper respiratory tract infection symptoms. The eye burned some but there is no pain. No known trauma. She wears glasses but not contact lenses. No fevers or chills. She's been able to clean the crusting off admitted reappears. Sometimes the vision is a little cloudy until she clears to discharge and then her vision returns to normal. - History of Current Complaint Chief Complaint: UCEye Stated Complaint: LT EYE SWELLING Time Seen by Provider: 02/23/18 13:30 Pain Intensity: 2 - Allergies/Home Medications Allergies/Adverse Reactions: Allergies Allergy/AdvReac Type Severity Reaction Status Date / Time No Known Allergies Allergy Verified 02/23/18 13:10 Home Medications: Home Medications Cholecalciferol TAB* [Vitamin D TAB*] 1,000 unit PO DAILY 02/23/18 [History Confirmed 02/23/18] Cyanocobalamin TAB* [Vitamin B12 TAB*] 1,000 mcg PO DAILY 02/23/18 [History Confirmed 02/23/18] Vitamin THERAPEUTIC TAB* [Theragran TAB*] 1 tab PO DAILY 02/23/18 [History Confirmed 02/23/18] PMH/Surg Hx/FS Hx/Imm Hx - Additional Past Medical History Additional PMH: wears glasses, does not wear contacts - Surgical History Surgical History: Yes Surgery Procedure, Year, and Place: GASSTRIC SLEEVE SURGERY. APPENDECTOMY. UTERIN ABLATION - Family History Known Family History: Positive: Hypertension, Diabetes, Other - Positive FMh for URI - Social History Alcohol Use: Rare Substance Use Type: None Smoking Status (MU): Light Every Day Tobacco Smoker Type: Cigarettes Amount Used/How Often: ~1/3 PPD Length of Time of Smoking/Using Tobacco: Since Age 21 Review of Systems Constitutional: Negative Skin: Negative Eyes: Blurred Vision, Drainage, Eye Redness, Other - See history present illness ENT: Negative Respiratory: Negative Cardiovascular: Negative Gastrointestinal: Negative Motor: Negative Neurovascular: Negative Musculoskeletal: Negative Neurological: Negative Psychological: Negative Is Patient Immunocompromised?: No All Other Systems Reviewed And Are Negative: Yes Physical Exam Triage Information Reviewed: Yes Appearance: Well-Appearing, No Pain Distress, Well-Nourished Vital Signs: Initial Vital Signs Temp 97.8 F 02/23/18 13:07 Pulse 72 02/23/18 13:07 Resp 16 02/23/18 13:07 BP 125/72 02/23/18 13:07 Pulse Ox 100 02/23/18 13:07 Vital Signs Reviewed: Yes Eyes: Positive: Conjunctiva Inflamed, Discharge ENT: Positive: Pharynx normal. Negative: Nasal congestion, Nasal drainage Neck exam: Normal Neck: Positive: Supple Respiratory: Positive: No respiratory distress Musculoskeletal Exam: Normal Musculoskeletal: Positive: Strength Intact, ROM Intact Neurological Exam: Normal Neurological: Positive: Alert Psychological Exam: Normal Psychological: Positive: Age Appropriate Behavior Skin Exam: Normal Eye Complaint Course/Dx - Differential Dx/Diagnosis Provider Diagnoses: Left eye conjunctivitis Discharge - Sign-Out/Discharge Documenting (check all that apply): Patient Departure All imaging exams completed and their final reports reviewed: No Studies - Discharge Plan Condition: Stable Disposition: HOME Prescriptions: Tobramycin 0.3% OPHTH.PAT* 1 drop LEFT EYE Q4H #1 btl Patient Education Materials: Conjunctivitis (ED) Referrals: Briseida Mcknight MD [Primary Care Provider] - Additional Instructions: FOLLOW UP WITH YOUR CATTLE BRANDER IF NOT COMPLETELY IMPROVED. GET RECHECKED FOR ANY WORSENING OF YOUR CONDITION OR QUESTIONS OR CONCERNS. - Billing Disposition and Condition Condition: STABLE Disposition: Home
== END 2018-02-23 13:47 | disposition home or self-care (01) ==
LOC: UCCORT 12:43
DX: H10.9 Unspecified conjunctivitis (principal); F17.210 Nicotine dependence, cigarettes, uncomplicated; Z98.84 Bariatric surgery status
CPT/HCPCS: 99212; G0463